=== PATIENT | female | born 1930 | race African-American/Black ===

== ENCOUNTER 2020-09-26 20:49 | Emergency (ER) | payer OTHER, BC ==
[~2020-09-26] VITALS: Ht 134.6 cm; Wt 43.0 kg
--- NOTE | ~2020-09-26 | EMS ---
[address] [address] EMS Patient Care Report Name: LENI BROOKS Room #: DEP NOEMI Devries#: [id number] Admission: 09/26/20 Attend Phys: Discharge: 09/27/20 Date of : [birth year] Report #: [id number] THIS REPORT FOR: //name// Report Transmitted: 09/27/2020 08:39 EMS Care Summary [place], [place] Incident [id number] @ 09/26/2020 20:21 Incident Location [address] [place] [address] Patient LENI BROOKS Female, 89 Years 1930 Patient Address [address] [place] [address] Patient History Dementia,Diabetes,Amputee, Patient Medications Insulin, Chief Complaint Suspected stroke Disposition Transported [place] Dis[place] Reason Convulsions/Seizure Transported To [facility] Narrative M42 arrived on scene to find the patient sitting upright in his bed. Patient's daughter said she had last seen the patient normal 30 minutes ago. She had come into the room to find the patient not responding to her. Patient has serve dementia and has a wound on her rear end. Patient normally communicates with the family and knows who she is. Patient's daughter had come into the room and the patient would not respond to her at all so she called 911. [place] [address] EMS Patient Care Report Name: LENI BROOKS Room #: DEP [facility]#: [id number] Admission: 09/26/20 Attend Phys: Discharge: 09/27/20 Date of : [birth year] Report #: [id number] bilateral below the knee amputee. Patient had a catheter and her urine was very cloudy and had a strong order. Patient's family denied the patient taking any blood thinners. Patient's family denied a fever or cough. We raised the patient's right and left arm, and dropped them. Patient's right arm fell straight down and patient's left arm tensed and slowly fell. Patient was unable to talk and would not look at us. Transport was made emergent with a stroke activation. En route to the hospital no changes in the patient condition occurred. M42 arrived on scene of the hospital and patient care was transferred to the RN. Initial Vitals @20:37P: 73,BP: 179/88, @20:45P: 59,R: 14,BP: 177/98,Pain: 0/10,GCS: 11,SpO2: 99,Revised Trauma: 11, @20:34P: 80,R: 14,BP: 185/96,Pain: 0/10,GCS: 11,Glucose: 120,SpO2: 88,Revised Trauma: 11, Assessments @20:27MENTAL:Confused,SKIN:HEENT:LUNG SOUNDS:ABDOMEN:PELVIS//GI:EXTREMITIES:Right Leg: Other,Left Leg: Other,PULSE:Radial: 2+ Normal,NEURO:Weakness Right-Sided,@20:38MENTAL:Confused,SKIN:HEENT:LUNG SOUNDS:ABDOMEN:PELVIS//GI:EXTREMITIES:Right Leg: Other,Left Leg: Other,PULSE:Radial: 2+ Normal,NEURO:Weakness Right-Sided, Impression Stroke Procedures @20:33Saline Lock 0cc (20 ga) Site: Antecubital-RightResponse: UnchangedFailed@20:27ALS AssessmentResponse: UnchangedSucceeded@20:38Saline Lock 0cc (20 ga) Site: Antecubital-RightResponse: UnchangedFailed@20:32Oxygen FlowRate: 4 Device: Nasal Cannula (NC) Response: UnchangedSucceeded Timeline 20:20,Call Received 20:20,Dispatch Notified 20:21,Dispatched 20:22,En Route 20:26,On Scene 20:27,At Patient 20:27,ALS Assessment,Response: UnchangedSucceeded, 20:32,Oxygen FlowRate: 4 Device: Nasal Cannula (NC) Response: UnchangedSucceeded, 20:33,Saline Lock 0cc 20 ga Site: Antecubital-Right,Response: UnchangedFailed, 20:34,BP: 185/96 M,PULSE: 80,RR: 14 R,SPO2: 88 Ox,ETCO2: ,B,PAIN: 0,GCS: 11, [facility] [address] [place] [address] EMS Patient Care Report Name: LENI BROOKS Room #: [facility] NOEMI Devrise#: [id number] Admission: 09/26/20 Attend Phys: Discharge: 09/27/20 Date of : [birth year] Report #: [id number] 20:37,BP: 179/88 M,PULSE: 73,RR: R,SPO2: Ox,ETCO2: ,BG: ,PAIN: ,GCS: , 20:38,Depart Scene 20:38,Saline Lock 0cc 20 ga Site: Antecubital-Right,Response: UnchangedFailed, 20:45,BP: 177/98 M,PULSE: 59,RR: 14 R,SPO2: 99 Ox,ETCO2: ,BG: ,PAIN: 0,GCS: 11, 20:47,At Destination 21:00,Call Closed Disclaimer v1.1 Copyright 2020 [employer] This EMS Care Summary contains data elements from the applicable legal record (which may be displayed differently). It is designed to provide pertinent information for the following purposes: continuity of care, clinical quality, and state data reporting. The complete legal record is available to ED staff and administrators of the receiving hospital in [employer]'s Patient Tracker. All data is provided "as is."
[2020-09-26 21:23] LABS: URINE BILIRUBIN NEGATIVE (Negative); URINE BLOOD TRACE (Negative); URINE CLARITY TURBID; URINE COLOR YELLOW; URINE GLUCOSE-RANDOM* NEGATIVE (Negative); URINE KETONES NEGATIVE (Negative); URINE NITRITE-REFLEX NEGATIVE (Negative); URINE PROTEIN (DIPSTICK) 2+ (Negative); URINE SPECIFIC GRAVITY <= 1.005 (1.005-1.035); URINE UROBILINOGEN 0.2 E.U./dl (0.2-1.0)
[2020-09-26 21:24] LABS: URINE LEUKOCYTES-REFLEX 3+ (Negative)
[2020-09-26 21:43] LABS: SQUAMOUS None Seen /LPF (0-3); URINE RBC 1-2 Rare /HPF (NONE SEEN); URINE WBC-REFLEX None Seen /HPF (0-5)
[2020-09-26 21:44] LABS: BACTERIA-REFLEX >30 Many /HPF (None Seen); TRIPLE PHOSPHATE CRYSTALS >10 Many /LPF (None Seen)
[2020-09-26 21:54] LABS: BASOPHILS 1.4 % (0.0-2.0); EOSINOPHILS 0.5 % (0.0-3.0); HEMATOCRIT 39.5 % (37.0-47.0); HEMOGLOBIN 13.2 gm/dL (12.0-15.0); LYMPHOCYTES 17.8 % (24.0-44.0); MCH 33.7 pg (26.0-34.0); MCHC 33.3 g/dL (28.0-37.0); MONOCYTES 13.2 % (1.0-8.0); PLATELET COUNT 363 thou/uL (150-400); POLYS 67.1 % (36.0-66.0); RBC 3.91 mil/uL (4.20-5.00)
[2020-09-26 22:02] LABS: ANION GAP 1 mmol/L (7-16); BUN 16 mg/dL (7-18); CALCIUM 9.6 mg/dL (8.5-10.1); CHLORIDE 106 mmol/L (98-107); CO2 34 mmol/L (21-32); CREATININE 0.7 mg/dL (0.6-1.0); GLUCOSE 97 mg/dL (74-106); POTASSIUM 4.1 mmol/L (3.5-5.1); SODIUM 141 mmol/L (136-145)
[2020-09-26 22:09] LABS: APTT 24.5 Seconds (24.5-32.8); PROTIME 10.9 Seconds (10.5-12.1)
[2020-09-26 22:12] LABS: ALBUMIN 2.7 g/dL (3.4-5.0); SGOT 51 U/L (15-37); SGPT 26 U/L (30-65); TOTAL BILIRUBIN 0.4 mg/dL (0.2-1.0); TOTAL PROTEIN 7.1 g/dL (6.4-8.2); TROPONIN-I <0.06 ng/mL (<0.06)
[2020-09-27 02:28] VITALS: BP 103/65
--- NOTE | 2020-09-27 08:17 | EKG ---
[address] [place] [address] ELECTROCARDIOGRAM REPORT Name: LENI BROOKS Room #: DEP NOEMI Devries#: [id number] Admission: 09/26/20 Attend Phys: Discharge: 09/27/20 Date of : [birth year] Report #: [id number] [facility] ED Test Date: 2020-09-26 Test Time: 21:44:20 Pat Name: LENI BROOKS Department: Patient ID: [id number]- Room: Gender: F Nondestructive Tester: VICENTE ADS : 1930 Requested By: Nick Gonzalez Order Number: [id number] MD: Darrell Manuel Measurements Intervals [place] Rate: 69 P: CT: QRS: 117 QRSD: 83 T: QT: 552 QTc: 592 Interpretive Statements Atrial fibrillation Poor R wave progression Prolonged QT interval Compared to ECG 04/09/2019 06:57:12 Poor R wave progression is now present Prolonged QT interval now present Atrial fibrillation has replaced sinus rhythm Electronically Signed On 09-27-2020 8:17:30 CDT by Darrell Manuel [email or web address] <ELECTRONICALLY SIGNED> By: Darrell Manuel MD, [facility] 09/27/20 0817 2144 43 Darrell Manuel MD, FACC /EPI
--- NOTE | 2020-09-27 08:18 | EKG ---
[place] [address] [email or web address] [address] ELECTROCARDIOGRAM REPORT Name: LENI BROOKS [facility] [id number] Admission: 09/26/20 Attend Phys: Discharge: 09/27/20 Date of : [birth year] Report #: [id number] [facility] ED Test Date: 2020-09-27 Test Time: 00:14:50 Pat Name: LENI BROOKS Department: Room: Gender: F Tableau Administrator: VICENTE DAS : 1930 Requested By: Sammie Eldridge Order Number: [id number] MD: Darrell Manuel Measurements Intervals [place] Rate: 100 P: [place]: QRS: -65 QRSD: 77 T: 159 QT: 356 QTc: 460 Interpretive Statements Atrial fibrillation Ventricular premature complex Poor R wave progression Inferior infarct, age indeterminate Nonspecific T wave abnormality No previous ECG available for comparison Electronically Signed On 09-27-2020 8:18:13 CDT by Darrell Manuel [email or web address] <ELECTRONICALLY SIGNED> By: Darrell Manuel MD, [facility] 09/27/20 0818 0014 0014 Darrell Manuel MD, FACC /EPI
--- NOTE | 2020-09-27 12:12 | HC ---
[facility] [place] [address] CONSULTATION Name: LENI BROOKS [facility] [id number] Admission: 09/26/20 Attend Phys: Discharge: 09/27/20 Date of : [birth year] Report #: [id number] THIS REPORT FOR: cc: [facility] - Clinic physician unknown [facility] - Clinic physician unknown Madi Lundberg MD ~ DATE OF SERVICE: 09/26/2020 HISTORY OF PRESENT ILLNESS: This is an 89-year-old female patient for whom a consultation was requested by emergency room physician. I initially talked to him on the phone and he indicated this patient has a baseline dementia and then she had a sudden onset of inability to talk and right-sided weakness. She came within TPA window, but from phone, it looks like the dementia was advanced and there was some contradicting things that the patient is palliative care, but at the same time she is also a full code. I asked the emergency room physician to talk to the family about making the patient palliative care and about the pros and cons of TPA and I came to see this patient. When I came to see this patient, the situation is pretty complicated. Initially when I came in, the patient was gone for CT angio and perfusion. At that time, a gentleman was in the room and a person who indicated that she is the durable power of global clinical leader was on a speaker phone talking to the emergency room doctor. If I understand correctly, the gentleman who is in the room lives with the patient with his fiance. He has lived there because apparently the patient and his mom were friend, but he is not the biological child. He tells me this patient does not have a biological child. After talking to her, it looks like the person who is on the phone is a niece who is also a durable power of global clinical leader according to her. I do not think there is cordial relationship between the gentleman who was there and the durable power of global clinical leader making the situation difficult. I talked to both of them and talked to the niece who is a durable power of global clinical leader on speaker phone for a long time. I told that I have not seen the patient and I can give her only the general information. I told her that multiple things can cause these kind of symptoms including encephalopathy, which sometimes can cause the focal sign and we do a noncontrast CT of the head and if clinical signs are consistent with stroke, we give TPA if the family is agreeable and that is done on the presumptive basis and our clinical impression and not with a confirmed diagnosis of stroke. Because of that some patients land up having TPA when it was not a stroke. I discussed with her that TPA is not a magic bullet and it has some benefit, but it also has severe complication. Complication rate increases with the age as well as with the preexisting brain disease, which this patient has. It was originally evaluated only with the patient less than 80, but subsequently it is given to everybody, but company never got approval for everybody, but it is recommended for everybody because the benefit outweigh the risk in these major strokes. I made it very clear that [address] [address] CONSULTATION Name: LENI BROOKS Room #: DEP NOEMI Devries#: [id number] Admission: 09/26/20 Attend Phys: Discharge: 09/27/20 Date of : [birth year] Report #: [id number] the diagnosis of the stroke is not certain and if you try to ascertain the diagnosis, typically the time runs about for TPA or the treatment gets delayed. Subsequently, the patient came back from CT angiogram and I looked at this patient. This patient does not look like in good shape. She is emaciated and extremely thin. She has a double amputation and she has a wound on her back. That wound was big, but it is smaller and it is the pressure ulcer. She does appear to have findings consistent with stroke. She has a dense left gaze preference. She persistently move the left upper extremity and she does not move the right upper extremity, that is the persistent finding. In fact, she hold the left arm up when I hold it up. The right arm falls like a log. 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 She has a catheter in. After looking at her, I again had a discussion with the niece on the speaker phone and the gentleman who lives with the patient in the room. I discussed with them that they have to decide how aggressive they want to be. In my opinion, the patient can be made a comfort care even now without doing anything in this patient because she is medically in a very poor condition and the quality of the life looks very poor. After discussing all of it with a durable power of global clinical leader with a gentleman in the room, the plan was to give TPA to this patient, but if she has complications from it like intracerebral bleed, then make her comfort care. In my view, this patient should be comfort and palliative care any way. TPA can be given as a last resort effort because she does appear to have what looks like dense hemiplegia, gaze preference towards the left and no verbal output at the moment, but this patient otherwise should be comfort care especially if she bleeds. I discussed all of it with emergency room physician who is arranging that. He tells me that he has already gone over the exclusion criteria with the gentleman and there is no exclusion from TPA and she is a TPA candidate. I discussed that aspect also with the niece because she is a durable power of global clinical leader. This patient is medically in very poor shape and in my view we should follow a very nonaggressive treatment in this patient and the aim should be to keep the patient comfortable. Family wanted to proceed with TPA and after excluding the contraindications for TPA, the ER doctor is going to proceed with TPA as per their wishes if there is no contraindication. This patient went for CT angiogram and the films are nondiagnostic because the dye infiltrated. Therefore, as I understand from the ER doctor, he is going to put a central line and do that after infusing the TPA attempt to do the CT angiogram and perfusion again. Again my feeling is that this patient should have very conservative care and may be comfort care, but I think we need to do what the family tells us to do, especially because she has durable power of [facility] [address] [place] [address] CONSULTATION Name: LENI BROOKS Room #: DEP Jaycob#: [id number] Admission: 09/26/20 Attend Phys: Discharge: 09/27/20 Date of : [birth year] Report #: [id number] global clinical leader. She wants at least the TPA and the situation can be discussed with them further after the CT perfusion comes, if it comes, but my strong recommendation in this patient is be very conservative and just try to keep her comfortable. The family is fully aware of the fact that this patient is on a very high risk of complication, both because of her age and because he has an unhealthy brain, but on the other hand, the recovery from the stroke is also poor in this patient assuming it is a stroke. Encephalopathy can give rise to focal findings and there is no way to exclude that at this time. Family understands all that, but still want to be somewhat aggressive, at least durable power of global clinical leader is and presently she want to give TPA and situation can be discussed with her periodically and please call me if I can be of any help. Emergency Room physician and hospitalist are going to manage this patient and I told them that they can call me anytime. Dr. Cutler will be taking over the neurology service in the morning and I will ask her to follow up after that. I spent more than 50 minutes of time taking care of this patient and majority was spent counseling and coordinating Thank you very much for this referral. <ELECTRONICALLY SIGNED> By: Madi Lundberg MD 09/27/20 1212 2236 0035 Madi Lundberg MD /nt
== END 2020-09-27 02:38 | disposition short-term general hospital (02) ==
LOC: ER 20:49
PROVIDERS: Emergency Medicine
DX: I63.9 Cerebral infarction, unspecified (principal); R47.01 Aphasia; R57.0 Cardiogenic shock; N39.0 Urinary tract infection, site not specified; I95.9 Hypotension, unspecified